=== PATIENT | female | born 1955 | race Two or more races ===

== ENCOUNTER 2021-06-30 09:23 | Emergency (ER) | payer BC ==
[~2021-06-30] VITALS: Ht 157.5 cm; Wt 86.2 kg
[2021-06-30] MEDS ORDERED: SYNTHROID300 MCG PO (09:33)
[2021-06-30] MEDS ORDERED: AMLODIPINE-OLM1 EAC3 PO (09:34)
[2021-06-30] MEDS ORDERED: TOPROL XL25 M1 PO (09:34)
[2021-06-30] MEDS ORDERED: SINGULAIR10 MG PO (09:35)
[2021-06-30] MEDS ORDERED: NIACOR500 MG PO (09:35)
[2021-06-30] MEDS ORDERED: [UNRECOGNIZED DRUG - OTHER] PO (09:36)
[2021-06-30] MEDS ORDERED: CHILDREN'S ASPI81 MG PO (09:36)
== END 2021-06-30 11:32 ==
LOC: ER 09:23
DX: L50.9 Urticaria, unspecified (principal)